=== PATIENT | female | born 1955 | race Caucasian/White ===

== ENCOUNTER → 2022-01-16 | Outpatient (CLI) | payer MEDICARE, BC ==
--- NOTE | 2022-01-16 16:23 | US ---
EXAMINATION TYPE: US abdomen limited DATE OF EXAM: 01/16/2022 COMPARISON: None CLINICAL HISTORY: 66-year-old female L04.1 ACUTE LYMPHADENITIS OF TRUNK. Lump left lower abdomen. TECHNIQUE: Targeted superficial scanning along the left lower abdomen at the site of palpable abnorma lity. FINDINGS: Road Oiler notes: Scanned area of concern no abnormalities seen. IMPRESSION: Unable to identify any discrete sonographic abnormality of the superficial tissues along the left lower abdomen at the patient's palpable site. The area should be followed clinically. If any enlargement is noted, it can be rescanned.
== END | disposition home or self-care (01) ==
LOC: RADUSWWP 13:21
PROVIDERS: ATTEND Family Medicine
DX: L04.1 Acute lymphadenitis of trunk (principal)
CPT/HCPCS: 76705